=== PATIENT | female | born 1990 | race African-American/Black ===

== ENCOUNTER 2018-08-25 08:58 | Emergency (ER) | payer OTHER ==
[~2018-08-25] VITALS: Ht 160 cm; Wt 68.0 kg
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
[2018-08-25] MEDS: HYDROcodone/APAP 5/325MG 1 TAB TABLET PO ONE (10:22)
[2018-08-25] MEDS ORDERED: CYCL-331 PO (10:33)
[2018-08-25 10:44] VITALS: BP 123/81
== END 2018-08-25 10:48 | disposition home or self-care (01) ==
LOC: ER 08:58
DX: S80.211A Abrasion, right knee, initial encounter (principal); M54.2 Cervicalgia; M54.6 Pain in thoracic spine; M25.532 Pain in left wrist; R51 Headache; M79.632 Pain in left forearm; G89.11 Acute pain due to trauma; Z88.1 Allergy status to other antibiotic agents; V89.2XXA Person injured in unspecified motor-vehicle accident, traffic, initial encounter; Y93.I9 Activity, other involving external motion; Y92.488 Other paved roadways as the place of occurrence of the external cause; Y99.8 Other external cause status
CPT/HCPCS: 70150; 72040; 73090; 73110; 73562; 99283